=== PATIENT | female | born 1980 | race Two or more races ===

== ENCOUNTER 2018-10-14 13:20 | Emergency (ER) | payer MEDICAID ==
[~2018-10-14] VITALS: Ht 149.9 cm; Wt 56.7 kg
--- NOTE | 2018-10-14 13:45 | NUR ---
BIB C/O FACIAL NUMBENESS AND ELLE UPPER AND LOWER EXTREMITIES x 2 MONTHS. PT IS AFGHAN-SPEAKING, AOX4, AMBULATORY, VSS, RR EVEN AND UNLABORED ON RA. NO ACUTE DISTRESS NOTED. AT BEDSIDE AND READY FOR EVAL.
[2018-10-14] MEDS ORDERED: LORAZEPAM 1 MG TABLET ONE (13:46)
[2018-10-14 14:00] LABS: BASOPHILS % (AUTO) 0.7 % (0.0-2.0); EOSINOPHILS % (AUTO) 2.1 % (0.0-6.0); HEMATOCRIT 36 % (33-45); HEMOGLOBIN 12.3 g/dL (11.5-14.8); LYMPHOCYTES # (AUTO) 2.2 /CMM (0.8-4.8); LYMPHOCYTES % (AUTO) 38.4 % (20.0-44.0); MEAN CORPUSCULAR HGB CONC 35 g/dl (31.0-36.0); MEAN CORPUSCULAR VOLUME 89 fL (82-100); MONOCYTES # (AUTO) 0.4 /CMM (0.1-1.30); MONOCYTES % (AUTO) 7.6 % (2.0-12.0); NEUTROPHILS % (AUTO) 51.2 % (43.0-81.0); PLATELET COUNT (AUTO) 356 /CMM (150-450); WHITE BLOOD COUNT (AUTO) 5.8 K/uL (4.3-11.0)
[2018-10-14] MEDS ORDERED: LORAZEPAM 1 MG TABLET PO ONE (14:00)
[2018-10-14] MEDS ORDERED: IV NS 0.9% 1,000 ML BAG IV ONE (14:00)
--- NOTE | 2018-10-14 14:05 | NUR ---
PT TAKEN TO CT VIA JUAN M
[2018-10-14 14:09] LABS: CALCIUM, SERUM 8.6 mg/dL (8.5-10.1); CARBON DIOXIDE 25 mmol/L (21-32); CHLORIDE 107 mmol/L (98-107); CREATININE 0.6 mg/dL (0.6-1.3); GLUCOSE 94 mg/dL (74-106); POTASSIUM 3.8 mmol/L (3.5-5.1); SODIUM SERUM 142 mmol/L (136-145); UREA NITROGEN, BLOOD 11 mg/dL (7-18)
[2018-10-14 14:15] LABS: ALANINE AMINOTRANSFERASE 30 U/L (12-78); ALKALINE PHOSPHATASE 103 U/L (46-116); ASPARTATE AMINOTRANSFERASE 23 U/L (15-37); BILIRUBIN,DIRECT 0.1 mg/dL (0.0-0.2); BILIRUBIN,TOTAL 0.4 mg/dL (0.2-1.0); TOTAL PROTEIN, SERUM 8.1 g/dL (6.4-8.2)
--- NOTE | 2018-10-14 14:45 | NUR ---
URINE SENT TO STAT LAB
--- NOTE | 2018-10-14 15:12 | NUR ---
Patient discharged to home in stable condition. Written and verbal after care instructions given. Patient verbalizes understanding of instruction. ALLOWING FLUIDS TO COMPLETE AND PT CAN GO HOME
[2018-10-14 15:16] LABS: APPEARANCE,URINE Clear (CLEAR); BILIRUBIN,URINE Negative (NEGATIVE); BLOOD, URINE Small Ery/uL (NEGATIVE); COLOR,URINE Yellow (YELLOW); KETONES,URINE Negative (NEGATIVE); LEUKOCYTE ESTERASE ,URINE Negative (NEGATIVE); NITRITE, URINE Negative (NEGATIVE); PROTEIN,URINE Negative (NEGATIVE); UGLUCOSE Negative (NEGATIVE); UROBILINOGEN,URINE 0.2 EU/dL (0.2)
[2018-10-14 15:34] LABS: BACTERIA,URINE Rare /HPF (None Seen); SQUAMOUS EPITHELIAL CELL,UR Few /HPF (None Seen); WBC,URINE NONE SEEN /HPF (0-3)
--- NOTE | 2018-10-14 15:37 | NUR ---
IV removed. Catheter intact and site benign. Pressure and 4x4 applied to site. No bleeding noted.
[2018-10-14 15:40] VITALS: BP 107/65
== END 2018-10-14 15:41 | disposition home or self-care (01) ==
LOC: ER 13:24
DX: R20.2 Paresthesia of skin (principal); R42 Dizziness and giddiness; F41.0 Panic disorder [episodic paroxysmal anxiety]; G47.00 Insomnia, unspecified; F41.9 Anxiety disorder, unspecified; R51 Headache
CPT/HCPCS: 36415; 70450; 71045; 80048; 80076; 81001; 84443; 84484; 84703; 85025; 85730; 93005; 96360; 99284; J7030; 81000-TC

== ENCOUNTER 2018-12-22 16:28 | Emergency (ER) | payer MEDICAID ==
[~2018-12-22] VITALS: Ht 152.4 cm; Wt 54.4 kg
--- NOTE | 2018-12-22 16:50 | NUR ---
UA COLLECTED -SENT TO LAB
[2018-12-22 17:25] LABS: APPEARANCE,URINE Clear (CLEAR); BILIRUBIN,URINE Negative (NEGATIVE); BLOOD, URINE Trace-lysed Ery/uL (NEGATIVE); COLOR,URINE Light yellow (YELLOW); KETONES,URINE Negative (NEGATIVE); LEUKOCYTE ESTERASE ,URINE Negative (NEGATIVE); NITRITE, URINE Negative (NEGATIVE); PROTEIN,URINE Negative (NEGATIVE); UGLUCOSE Negative (NEGATIVE); UROBILINOGEN,URINE 0.2 EU/dL (0.2)
[2018-12-22 17:34] LABS: BACTERIA,URINE Rare /HPF (None Seen); RBC,URINE 0-2 /HPF (0-2); SQUAMOUS EPITHELIAL CELL,UR Rare /HPF (None Seen); WBC,URINE 0-2 /HPF (0-3)
[2018-12-22 17:48] LABS: BASOPHILS % (AUTO) 0.4 % (0.0-2.0); EOSINOPHILS % (AUTO) 1.6 % (0.0-6.0); HEMATOCRIT 36 % (33-45); HEMOGLOBIN 12.5 g/dL (11.5-14.8); LYMPHOCYTES # (AUTO) 2.2 /CMM (0.8-4.8); LYMPHOCYTES % (AUTO) 34.1 % (20.0-44.0); MEAN CORPUSCULAR HGB CONC 35 g/dl (31.0-36.0); MEAN CORPUSCULAR VOLUME 88 fL (82-100); MONOCYTES # (AUTO) 0.4 /CMM (0.1-1.30); MONOCYTES % (AUTO) 6.8 % (2.0-12.0); NEUTROPHILS # (AUTO) 3.7 /CMM (1.8-8.9); NEUTROPHILS % (AUTO) 57.1 % (43.0-81.0); PLATELET COUNT (AUTO) 339 /CMM (150-450); RED BLOOD CELL COUNT(AUTO) 4.14 MIL/uL (4.0-5.2); WHITE BLOOD COUNT (AUTO) 6.5 K/uL (4.3-11.0)
[2018-12-22 17:59] LABS: CREATININE 0.7 mg/dL (0.6-1.3); POTASSIUM 3.7 mmol/L (3.5-5.1)
[2018-12-22 18:01] LABS: ALBUMIN 3.8 g/dL (3.4-5.0); BILIRUBIN,DIRECT 0.1 mg/dL (0.0-0.2); BILIRUBIN,TOTAL 0.3 mg/dL (0.2-1.0)
--- NOTE | 2018-12-22 18:28 | NUR ---
PT TO CT VIA JUAN M
[2018-12-22] MEDS ORDERED: IOHEXOL-300 100 ML VIAL IV ONE (18:30)
[2018-12-22] MEDS ORDERED: KETOROLAC TROMETHAMINE INJ 30 MG/ML VIAL IV ONE (20:30)
[2018-12-22] MEDS ORDERED: KETOROLAC TROMETHAMINE INJ 30 MG/ML VIAL ONE (20:31)
--- NOTE | 2018-12-22 20:42 | NUR ---
IV removed. Catheter intact and site benign. Pressure and 4x4 applied to site. No bleeding noted. Patient discharged to home in stable condition. Written and verbal after care instructions given. Patient verbalizes understanding of instruction. ambulatory with a steady gait
[2018-12-22 20:43] VITALS: BP 134/75
== END 2018-12-22 20:44 | disposition home or self-care (01) ==
LOC: ER 16:29
DX: K52.9 Noninfective gastroenteritis and colitis, unspecified (principal); E28.39 Other primary ovarian failure
CPT/HCPCS: 36415; 74177; 76856; 80048; 80076; 81001; 84703; 85025; 96374; 99284; J1885; Q9967; 81000-TC

== ENCOUNTER 2019-08-26 23:34 | Emergency (ER) | payer MEDICAID ==
[~2019-08-26] VITALS: Ht 149.9 cm; Wt 61.2 kg
--- NOTE | 2019-08-26 23:50 | NUR ---
PT AAOX4. AMBULATORY WITH STEADY GAIT. C/O DIARRHEA AND NAUSEA X1 DAY. PLACED IN BED 9, NO ACUTE DISTRESS NOTED. VSS. AMBULATED TO RESTROOM TO PROVIDE URINE SAMPLE. AWAITING MD FOR EVAL AND ORDER. WILL CONTINUE TO MONITOR.
[2019-08-26] MEDS ORDERED: MORPHINE SULFATE INJ 2 MG/ML DISP.SYRIN ONE (23:54)
[2019-08-26] MEDS ORDERED: ONDANSETRON HCL/PF 4 MG/2 ML VIAL ONE (23:54)
--- NOTE | 2019-08-26 23:57 | NUR ---
URINE SENT TO LAB.
[2019-08-27] MEDS ORDERED: MORPHINE SULFATE INJ 2 MG/ML DISP.SYRIN IV ONE
[2019-08-27] MEDS ORDERED: ONDANSETRON HCL/PF 4 MG/2 ML VIAL IVP ONE
[2019-08-27] MEDS ORDERED: IV NS 0.9% 1,000 ML BAG IV ONE
[2019-08-27 00:09] LABS: APPEARANCE,URINE Clear (CLEAR); BASOPHILS % (AUTO) 0.5 % (0.0-2.0); BILIRUBIN,URINE Negative (NEGATIVE); BLOOD, URINE Negative Ery/uL (NEGATIVE); COLOR,URINE Yellow (YELLOW); EOSINOPHILS % (AUTO) 1.4 % (0.0-6.0); HEMATOCRIT 37 % (33-45); HEMOGLOBIN 12.5 g/dL (11.5-14.8); KETONES,URINE Negative (NEGATIVE); LEUKOCYTE ESTERASE ,URINE Small (NEGATIVE); LYMPHOCYTES # (AUTO) 2.3 /CMM (0.8-4.8); LYMPHOCYTES % (AUTO) 36.6 % (20.0-44.0); MEAN CORPUSCULAR HGB CONC 34 g/dl (31.0-36.0); MEAN CORPUSCULAR VOLUME 87 fL (82-100); MONOCYTES # (AUTO) 0.4 /CMM (0.1-1.30); MONOCYTES % (AUTO) 6.9 % (2.0-12.0); NEUTROPHILS # (AUTO) 3.5 /CMM (1.8-8.9); NEUTROPHILS % (AUTO) 54.6 % (43.0-81.0); NITRITE, URINE Negative (NEGATIVE); PH,URINE 7.5 (5.0-8.0); PLATELET COUNT (AUTO) 264 /CMM (150-450); PROTEIN,URINE Negative (NEGATIVE); RED BLOOD CELL COUNT(AUTO) 4.18 MIL/uL (4.0-5.2); UGLUCOSE Negative (NEGATIVE); UROBILINOGEN,URINE 0.2 EU/dL (0.2); WHITE BLOOD COUNT (AUTO) 6.3 K/uL (4.3-11.0)
--- NOTE | 2019-08-27 00:11 | NUR ---
LABS SENT, MEDS GIVEN, VSS. WILL CONTINUE TO MONITOR PT.
[2019-08-27 00:15] LABS: CALCIUM, SERUM 9.2 mg/dL (8.5-10.1); CREATININE 0.8 mg/dL (0.6-1.3); POTASSIUM 3.9 mmol/L (3.5-5.1)
[2019-08-27 00:24] LABS: ALBUMIN 3.8 g/dL (3.4-5.0); BILIRUBIN,TOTAL 0.3 mg/dL (0.2-1.0); TOTAL PROTEIN, SERUM 8.9 g/dL (6.4-8.2)
[2019-08-27 00:28] LABS: BACTERIA,URINE Few /HPF (None Seen); RBC,URINE 0-2 /HPF (0-2); SQUAMOUS EPITHELIAL CELL,UR Few /HPF (None Seen)
[2019-08-27] MEDS ORDERED: LIDOCAINE VISCOUS 2% UD 15 ML UDC ONE (00:43)
[2019-08-27] MEDS ORDERED: MAG HYDROX/AL HYDROX/SIMETH 30 ML UDC ONE (00:43)
--- NOTE | 2019-08-27 00:46 | NUR ---
IV removed. Catheter intact and site benign. Pressure and 4x4 applied to site. No bleeding noted.
--- NOTE | 2019-08-27 00:47 | NUR ---
Patient discharged to home in stable condition. Written and verbal after care instructions given. Patient verbalizes understanding of instructions and RX. Discharge given in [place]. VSS. Pt ambulated with steady gait.
[2019-08-27] MEDS ORDERED: LIDOCAINE VISCOUS 2% UD 15 ML UDC MM ONE (01:00)
[2019-08-27] MEDS ORDERED: MAG HYDROX/AL HYDROX/SIMETH 30 ML UDC PO ONE (01:00)
--- NOTE | 2019-08-27 01:13 | NUR ---
Mimi starr in [facility], [place] - 08/27/19 at 0113 by TRIXIE charissa radiology pat
[2019-08-27 01:14] VITALS: BP 132/82
== END 2019-08-27 01:14 | disposition home or self-care (01) ==
LOC: ER 23:39
DX: K52.9 Noninfective gastroenteritis and colitis, unspecified (principal)
CPT/HCPCS: 36415; 80048; 80076; 81001; 83690; 84703; 85025; 96361; 96374; 96375; 99284; J2270; J2405; J7030; 81000-TC

== ENCOUNTER 2020-02-06 07:17 | Emergency (ER) | payer MEDICAID ==
[~2020-02-06] VITALS: Ht 149.9 cm; Wt 41.7 kg
--- NOTE | 2020-02-06 07:40 | NUR ---
PATIENT CAME IN C/O LLQ ABDOMINAL PAIN FOR A YEAR. PATIENT A/OX4, BREATHING EVEN AND UNLABORED, NO SOB NOTED. NEEDS ATTENDED.
--- NOTE | 2020-02-06 07:45 | NUR ---
DR. MG AT BEDSIDE FOR EVAL.
[2020-02-06] MEDS ORDERED: KETOROLAC TROMETHAMINE INJ 30 MG/ML VIAL IM ONE (08:00)
[2020-02-06 08:01] LABS: APPEARANCE,URINE Clear (CLEAR); BILIRUBIN,URINE Negative (NEGATIVE); BLOOD, URINE Trace-intact Ery/uL (NEGATIVE); COLOR,URINE Yellow (YELLOW); KETONES,URINE Negative (NEGATIVE); LEUKOCYTE ESTERASE ,URINE Negative (NEGATIVE); NITRITE, URINE Negative (NEGATIVE); PROTEIN,URINE Negative (NEGATIVE); UGLUCOSE Negative (NEGATIVE); UROBILINOGEN,URINE 0.2 EU/dL (0.2)
[2020-02-06 08:02] LABS: BACTERIA,URINE Few /HPF (None Seen); SQUAMOUS EPITHELIAL CELL,UR Few /HPF (None Seen); WBC,URINE 0-2 /HPF (0-3)
[2020-02-06] MEDS ORDERED: KETOROLAC TROMETHAMINE INJ 30 MG/ML VIAL ONE (08:04)
[2020-02-06 08:17] LABS: BASOPHILS % (AUTO) 0.4 % (0.0-2.0); EOSINOPHILS % (AUTO) 2.7 % (0.0-6.0); HEMATOCRIT 36 % (33-45); HEMOGLOBIN 12.3 g/dL (11.5-14.8); LYMPHOCYTES # (AUTO) 1.8 /CMM (0.8-4.8); LYMPHOCYTES % (AUTO) 31.8 % (20.0-44.0); MEAN CORPUSCULAR HGB CONC 34 g/dl (31.0-36.0); MEAN CORPUSCULAR VOLUME 88 fL (82-100); MONOCYTES # (AUTO) 0.4 /CMM (0.1-1.30); MONOCYTES % (AUTO) 6.8 % (2.0-12.0); NEUTROPHILS # (AUTO) 3.2 /CMM (1.8-8.9); NEUTROPHILS % (AUTO) 58.3 % (43.0-81.0); PLATELET COUNT (AUTO) 329 /CMM (150-450); WHITE BLOOD COUNT (AUTO) 5.6 K/uL (4.3-11.0)
[2020-02-06 08:41] LABS: ALBUMIN 3.8 g/dL (3.4-5.0); BILIRUBIN,DIRECT 0.1 mg/dL (0.0-0.2); BILIRUBIN,TOTAL 0.4 mg/dL (0.2-1.0); CALCIUM, SERUM 9.1 mg/dL (8.5-10.1); CREATININE 0.7 mg/dL (0.6-1.3); POTASSIUM 3.8 mmol/L (3.5-5.1); TOTAL PROTEIN, SERUM 7.9 g/dL (6.4-8.2)
[2020-02-06 09:31] VITALS: BP 134/20
--- NOTE | 2020-02-06 09:31 | NUR ---
Patient discharged to home in stable condition. Written and verbal after care instructions given. Patient verbalizes understanding of instruction.
== END 2020-02-06 09:31 | disposition home or self-care (01) ==
LOC: ER 07:20
DX: R10.32 Left lower quadrant pain (principal); R31.9 Hematuria, unspecified
CPT/HCPCS: 36415; 74176; 80048; 80076; 81001; 83690; 84703; 85025; 87086; 96372; 99284; J1885; 81000-TC

== ENCOUNTER 2020-02-06 15:31 | Emergency (ER) | payer MEDICAID ==
[~2020-02-06] VITALS: Ht 149.9 cm; Wt 72.6 kg
[2020-02-06 16:02] VITALS: BP 134/80
== END 2020-02-06 17:07 | disposition home or self-care (01) ==
LOC: ER 15:36
DX: R10.9 Unspecified abdominal pain (principal); M54.42 Lumbago with sciatica, left side; M79.605 Pain in left leg

== ENCOUNTER 2020-03-25 16:48 | Emergency (ER) | payer MEDICAID ==
[~2020-03-25] VITALS: Ht 149.9 cm; Wt 60.8 kg
--- NOTE | 2020-03-25 16:55 | NUR ---
came in ambulatory, c/o headache x 2 weeks, 10/10 pain scale, -N/V, to ER bed 1, hooked to monitor, changed to hosp gown, warm blanket provided. no neuro deficit noted. awaiting MD romo
--- NOTE | 2020-03-25 17:08 | NUR ---
DR CARDENAS AT BEDSIDE
--- NOTE | 2020-03-25 17:20 | NUR ---
urine sample collected and sent to lab
[2020-03-25] MEDS ORDERED: METOCLOPRAMIDE HCL 10 MG/2 ML VIAL ONE (17:40)
[2020-03-25] MEDS ORDERED: METOCLOPRAMIDE HCL 10 MG/2 ML VIAL IM ONE (18:00)
[2020-03-25] MEDS ORDERED: KETOROLAC TROMETHAMINE INJ 60 MG/2 ML VIAL IM ONE (18:00)
[2020-03-25 18:05] LABS: BILIRUBIN,URINE Negative (NEGATIVE); BLOOD, URINE Trace-lysed Ery/uL (NEGATIVE); COLOR,URINE Yellow (YELLOW); LEUKOCYTE ESTERASE ,URINE Negative (NEGATIVE); NITRITE, URINE Negative (NEGATIVE); PROTEIN,URINE Negative (NEGATIVE); UGLUCOSE Negative (NEGATIVE); UROBILINOGEN,URINE 0.2 EU/dL (0.2)
[2020-03-25 18:08] LABS: BACTERIA,URINE None seen /HPF (None Seen); SQUAMOUS EPITHELIAL CELL,UR Few /HPF (None Seen); WBC,URINE 0-2 /HPF (0-3)
[2020-03-25] MEDS ORDERED: KETOROLAC TROMETHAMINE INJ 30 MG/ML VIAL ONE (18:18)
[2020-03-25 18:33] VITALS: BP 124/71
--- NOTE | 2020-03-25 18:33 | NUR ---
Patient discharged to home in stable condition. Written and verbal after care instructions given. Patient verbalizes understanding of instruction.
== END 2020-03-25 18:34 | disposition home or self-care (01) ==
LOC: ER 16:54
DX: R51.9 Headache, unspecified (principal)
CPT/HCPCS: 81001; 84703; 96372 ×2; 99284; J1885; J2765; 81000-TC

== ENCOUNTER 2020-03-29 21:18 | Emergency (ER) | payer MEDICAID ==
[~2020-03-29] VITALS: Ht 152.4 cm; Wt 56.2 kg
--- NOTE | 2020-03-29 21:30 | NUR ---
BIB C/O LLQ PAIN X2 WEEKS. PT PLACED IN BED 2 ON MONITOR AND PULSE OX. AMBULATORY WITH STEADY GAIT. SKIN WARM AND INTACT. RR EVEN AND UNLABORED.
--- NOTE | 2020-03-29 21:33 | NUR ---
PT AMBULATED TO THE RESTROOM TO PROVIDE URINE SAMPLE.
[2020-03-29 22:28] LABS: BILIRUBIN,URINE NEGATIVE (NEGATIVE); BLOOD, URINE NEGATIVE Ery/uL (NEGATIVE); COLOR,URINE YELLOW (YELLOW); LEUKOCYTE ESTERASE ,URINE NEGATIVE (NEGATIVE); NITRITE, URINE NEGATIVE (NEGATIVE); PROTEIN,URINE NEGATIVE (NEGATIVE); UGLUCOSE NEGATIVE (NEGATIVE); UROBILINOGEN,URINE 0.2 EU/dL (0.2)
[2020-03-29] MEDS ORDERED: ONDANSETRON HCL/PF 4 MG/2 ML VIAL IV ONE (22:30)
[2020-03-29] MEDS ORDERED: IV NS 0.9% 1,000 ML IV ONE (22:30)
[2020-03-29 22:46] LABS: BASOPHILS # (AUTO) 0.1 /CMM (0.0-0.2); BASOPHILS % (AUTO) 0.7 % (0.0-2.0); EOSINOPHILS % (AUTO) 2.2 % (0.0-6.0); HEMATOCRIT 37 % (33-45); HEMOGLOBIN 12.6 g/dL (11.5-14.8); LYMPHOCYTES # (AUTO) 3.5 /CMM (0.8-4.8); LYMPHOCYTES % (AUTO) 32.7 % (20.0-44.0); MEAN CORPUSCULAR HGB CONC 34 g/dl (31.0-36.0); MEAN CORPUSCULAR VOLUME 89 fL (82-100); MONOCYTES # (AUTO) 0.5 /CMM (0.1-1.30); MONOCYTES % (AUTO) 4.3 % (2.0-12.0); NEUTROPHILS # (AUTO) 6.4 /CMM (1.8-8.9); NEUTROPHILS % (AUTO) 60.1 % (43.0-81.0); PLATELET COUNT (AUTO) 353 /CMM (150-450); RED BLOOD CELL COUNT(AUTO) 4.15 MIL/uL (4.0-5.2); WHITE BLOOD COUNT (AUTO) 10.6 K/uL (4.3-11.0)
[2020-03-29 22:53] LABS: CALCIUM, SERUM 8.5 mg/dL (8.5-10.1); CREATININE 0.7 mg/dL (0.6-1.3); POTASSIUM 3.9 mmol/L (3.5-5.1)
[2020-03-29 22:59] LABS: ALBUMIN 3.3 g/dL (3.4-5.0); BILIRUBIN,TOTAL 0.3 mg/dL (0.2-1.0); TOTAL PROTEIN, SERUM 6.9 g/dL (6.4-8.2)
[2020-03-29] MEDS ORDERED: IV NS 0.9% 250 ML IV ONE (23:04)
[2020-03-29] MEDS ORDERED: IOHEXOL-300 100 ML VIAL IV ONE (23:04)
[2020-03-29] MEDS ORDERED: ONDANSETRON HCL/PF 4 MG/2 ML VIAL ONE (23:08)
[2020-03-29] MEDS ORDERED: MORPHINE SULFATE INJ 4 MG/ML DISP.SYRIN ONE (23:08)
[2020-03-29] MEDS: ONDANSETRON HCL/PF 4 MG/2 ML VIAL IV ONE (23:13)
[2020-03-29] MEDS: MORPHINE SULFATE INJ 2 MG/ML DISP.SYRIN IV ONE (23:13)
[2020-03-30] MEDS ORDERED: MORPHINE SULFATE INJ 4 MG/ML DISP.SYRIN ONE (00:31)
[2020-03-30] MEDS: MORPHINE SULFATE INJ 2 MG/ML DISP.SYRIN IV ONE (00:32)
--- NOTE | 2020-03-30 01:00 | NUR ---
US TECH AT BED SIDE
--- NOTE | 2020-03-30 02:10 | NUR ---
Patient discharged to home in stable condition. Written and verbal after care instructions given. Patient verbalizes understanding of instruction.
--- NOTE | 2020-03-30 02:10 | NUR ---
IV removed. Catheter intact and site benign. Pressure and 4x4 applied to site. No bleeding noted.
[2020-03-30 02:12] VITALS: BP 124/71
--- NOTE | 2020-03-30 02:13 | NUR ---
Patient is picked up by .
== END 2020-03-30 02:13 | disposition home or self-care (01) ==
LOC: ER 21:20
DX: K80.20 Calculus of gallbladder without cholecystitis without obstruction (principal)
CPT/HCPCS: 36415; 74177; 76856; 80048; 80076; 81001; 83690; 84703; 85025; 96374; 96375; 96376; 99285; J2270 ×2; J2405; J7050; Q9967; 81000-TC

== ENCOUNTER 2021-05-21 07:26 | Emergency (ER) | payer MEDICAID ==
[~2021-05-21] VITALS: Ht 154.9 cm; Wt 56.7 kg
[2021-05-21 07:35] VITALS: BP 122/88
[2021-05-21] MEDS ORDERED: IBUPROFEN 600 MG TABLET PO ONE (08:00)
[2021-05-21] MEDS ORDERED: IBUPROFEN 600 MG TABLET ONE (08:08)
--- NOTE | 2021-05-21 08:30 | NUR ---
CALLED LAB FOR URINE SPECIMEN CONTAMINATION CONSULTANT.
[2021-05-21 09:29] LABS: BILIRUBIN,URINE NEGATIVE (NEGATIVE); COLOR,URINE DARK YELLOW (YELLOW); LEUKOCYTE ESTERASE ,URINE NEGATIVE (NEGATIVE); NITRITE, URINE POSITIVE (NEGATIVE); PROTEIN,URINE NEGATIVE (NEGATIVE); UGLUCOSE NEGATIVE (NEGATIVE); UROBILINOGEN,URINE 0.2 EU/dL (0.2)
[2021-05-21] MEDS ORDERED: CEPH500T PO (09:58)
--- NOTE | 2021-05-21 10:05 | NUR ---
Patient discharged to home in stable condition. Written and verbal after care instructions given. Patient verbalizes understanding of instruction.
[2021-05-21 12:27] LABS: RBC,URINE 0-2 /HPF (0-2); WBC,URINE 0-2 /HPF (0-3)
[2021-05-21 12:29] LABS: BACTERIA,URINE Few /HPF (None Seen); SQUAMOUS EPITHELIAL CELL,UR Rare /HPF (None Seen)
== END 2021-05-21 10:05 | disposition home or self-care (01) ==
LOC: ER 07:29
DX: N39.0 Urinary tract infection, site not specified (principal); Z79.899 Other long term (current) drug therapy
CPT/HCPCS: 81001; 84703-TC; 87086-TC

== ENCOUNTER 2025-02-22 20:08 | Emergency (ER) | payer MEDICAID ==
[~2025-02-22] VITALS: Ht 154.9 cm; Wt 59.0 kg
[~2025-02-22 20:08] MED LIST: CEPH500T PO
[2025-02-22 20:23] VITALS: TEMP 98.2
[2025-02-22] MEDS ORDERED: dexaMETHasone SOD PHOSPHATE 1 ML ONE (21:05)
[2025-02-22] MEDS ORDERED: METOCLOPRAMIDE HCL 10 MG/2 ML VIAL ONE (21:05)
[2025-02-22 21:35] LABS: PLATELET COUNT (AUTO) 359 K/uL (150-450); RED BLOOD CELL COUNT(AUTO) 4.03 MIL/uL (4.0-5.2); RED CELL DISTRIBUTION WIDTH 13.8 % (11.5-15.0); WHITE BLOOD COUNT (AUTO) 7.1 K/uL (4.3-11.0)
[2025-02-22] MEDS: IV NS 0.9% 1,000 ML BAG IV ONE (21:35)
[2025-02-22] MEDS: dexaMETHasone SOD PHOSPHATE 10 MG/ML VIAL IV ONE (21:36)
[2025-02-22] MEDS: METOCLOPRAMIDE HCL 10 MG/2 ML VIAL IV ONE (21:40)
[2025-02-22 21:47] LABS: CALCIUM, SERUM 8.6 mg/dL (8.5-10.1); CREATININE 0.8 mg/dL (0.6-1.3); SODIUM SERUM 140.0 mmol/L (136-145); UREA NITROGEN, BLOOD 19.0 mg/dL (7-18)
[2025-02-22 21:51] LABS: PHOSPHORUS 4.1 mg/dL (2.5-4.9)
[2025-02-22 22:30] LABS: APPEARANCE,URINE CLEAR (CLEAR); BLOOD, URINE TRACE-INTA Ery/uL (NEGATIVE); LEUKOCYTE ESTERASE ,URINE 1+ (NEGATIVE); NITRITE, URINE NEGATIVE (NEGATIVE); PREGNANCY TEST URINE QUAL NEGATIVE (NEGATIVE); UGLUCOSE NEGATIVE (NEGATIVE)
[2025-02-22] MEDS ORDERED: IBUP-1955 PO (22:42)
[2025-02-22 22:49] LABS: ADD URINE CULTURE YES; SQUAMOUS EPITHELIAL CELL,UR 0-2 /HPF (None Seen)
[2025-02-22 23:15] VITALS: BP 118/78; O2SAT 98
== END 2025-02-22 23:13 | disposition home or self-care (01) ==
LOC: ER 20:13
DX: R51.9 Headache, unspecified (principal); R07.89 Other chest pain
CPT/HCPCS: 99285; 96374; 70450; 96375; 71045; 96361; 93005; 85025; 80048; 87086; 83735; 84100; 84703; 81001; 36415; J1100; J1200; J2765; J7030